=== PATIENT | female | born 1980 | race Caucasian/White ===

== ENCOUNTER 2019-01-12 09:52 | Emergency (ER) | payer OTHER, SELFPAY ==
[2019-01-12 09:58] VITALS: BP 114/78; PULSE 69; RESP 18; TEMP 36.3; O2SAT 100
[2019-01-12 12:13] VITALS: BP 125/75; PULSE 70; RESP 17; O2SAT 100
--- NOTE | 2019-01-12 12:22 | ED_ITS ---
HPI - Extremity Injury (Upper) <BERENICE Rosenbaum - Last Filed: 01/12/19 21:54> General Chief Complaint: Extremity Injury, Upper Stated Complaint: possible MS Relapse Time Seen by Provider: 01/12/19 09:55 Source: patient Mode of arrival: ambulatory Limitations: no limitations History of Present Illness HPI narrative: 38-year-old female with history of MS is a nonsmoker here for complaint of numbness to her distal right arm. She reports that she has had this over the past 3-4 days. She reports that the numbness and some discomfort to her right shoulder started after she had strenuous exercise after lifting weights above her head the day before and worsened when she repeated a strenuous exercise regimen the next day. She was seen for the same symptoms at [facility]. Where MRI of her right shoulder and her neck were obtained and were negative for any acute findings. Consultation was held with Urology did not feel that this was an acute MS exacerbation and is most likely muscle skeletal due to exacerbation from strenuous workout. She reports that her symptoms not have resolved at this timeframe she denies any direct trauma. She denies any other neurological deficits. With no visual changes. She is ambulatory into the emergency room. Numbness is limited to the right arm and hand. She denies any stressors or relievers of her symptoms. Related Data Home Medications Medication Instructions Recorded Confirmed Fish Oil 1 cap PO BEDTIME 01/12/19 01/12/19 Vitamin D3 1 cap PO BEDTIME PRN 01/12/19 01/12/19 melatonin 1 tab PO BEDTIME PRN 01/12/19 01/12/19 vitamin B complex 1 tab PO BEDTIME 01/12/19 01/12/19 Previous Rx's Medication Instructions Recorded cyclobenzaprine 10 mg PO TID PRN #15 tab 01/12/19 prednisone 40 mg PO DAILY #8 tab 01/12/19 Allergies Allergy/AdvReac Type Severity Reaction Status Date / Time Sulfa (Sulfonamide AdvReac Verified 01/12/19 09:58 Antibiotics) Review of Systems <BERENICE Rosenbaum - Last Filed: 01/12/19 21:54> Constitutional Denies chills, Denies fever(s), Denies lethargy and Denies weakness Eyes Denies change in vision, Denies eye discharge, Denies irritation and Denies loss of vision ENT Ears, Nose, Mouth, and Throat: Denies change in voice, Denies neck pain and Denies sore throat Cardiovascular Denies chest pain, Denies irregular heart rhythm, Denies lightheadedness, Denies palpitations, Denies dyspnea, Denies dyspnea on exertion and Denies orthopnea Respiratory Denies cough, Denies dyspnea, Denies dyspnea on exertion and Denies wheezing Gastrointestinal Comments: Right arm numbness Genitourinary Denies hematuria, Denies flank pain, Denies urinary incontinence and Denies urinary urgency Musculoskeletal Denies neck pain Integumentary/Breasts Denies pruritus, Denies erythema, Denies rash and Denies wounds Neurologic Denies confusion, Denies loss of vision and Denies weakness Psychiatric Denies anxiety, Denies confusion, Denies depression, Denies homicidal ideation and Denies suicidal ideation Endocrine Denies palpitations Hematologic/Lymphatic Denies easy bruising Allergic/Immunologic Denies wheezing PFSH <BERENICE Rosenbaum - Last Filed: 01/12/19 21:54> Social History Smoking Status: Never smoker Social History Smoking Status: Never smoker Exam <BERENICE Rosenbaum - Last Filed: 01/12/19 21:54> Initial Vital Signs Initial Vital Signs: Vital Signs Temperature 97.4 F L 01/12/19 09:58 Pulse Rate 69 01/12/19 09:58 Respiratory Rate 18 01/12/19 09:58 Blood Pressure 114/78 01/12/19 09:58 Pulse Oximetry 100 01/12/19 09:58 Const General: cooperative and well developed Nutritional Appearance: well nourished Orientation: alert, awake, oriented x3 and not confused [facility] Mouth: oral mucosae normal and moist mucous membranes Eyes Conjunctivae: conjunctivae normal Sclera: sclerae normal Pupils: PERRL EOM: EOM intact bilaterally Neck Neck: normal visual inspection, trachea midline, No lymphadenopathy, No midline deformity and No JVD Thyroid: nontender Lymphatic: No lymphedema Chest Chest: normal inspection of the chest Resp Effort & Inspection: normal respiratory effort, able to speak in complete sentences, no respiratory distress and no use of accessory muscles Auscultation: clear to auscultation bilaterally, no rales, no rhonchi and no wheezes Cardio Rate: regular rate Rhythm: regular rhythm Heart Sounds: no click, no gallops, no murmurs and no rubs Pulses: normal peripheral pulses Skin General: no rashes or lesions noted, No jaundice and No petechiae Extrem General: full ROM, no clubbing, cyanosis or edema, no pedal edema and no calf tenderness Other: Right arm with no signs of trauma. Distal sensation is intact. She has full range of motion of the right arm. There is tenderness with palpation to the right trapezius area with muscle tension. No tenderness to palpation to the right shoulder and right arm. Distal pulses are intact. <Carlos Sanchez DO - Last Filed: 01/13/19 09:44> Initial Vital Signs Initial Vital Signs: Vital Signs Temperature 97.4 F L 01/12/19 09:58 Pulse Rate 69 01/12/19 09:58 Respiratory Rate 18 01/12/19 09:58 Blood Pressure 114/78 01/12/19 09:58 Pulse Oximetry 100 01/12/19 09:58 Course <BERENICE Rosenbaum - Last Filed: 01/12/19 21:54> Vital Signs - 8 hr 01/12/19 14:00 Pulse Rate 53 L Respiratory Rate 18 Blood Pressure [Left Arm] 105/57 L <DO Don Martinez Last Filed: 01/13/19 09:44> Vital Signs - 8 hr 01/12/19 14:00 Pulse Rate 53 L Respiratory Rate 18 Blood Pressure [Left Arm] 105/57 L MDM - Extremity Injury (Upper) <BERENICE Rosenbaum - Last Filed: 01/12/19 21:54> MDM Narrative Medical decision making narrative: Reviewed results from a [facility] emergency [facility] visit 2 days ago. MRI was unremarkable to the shoulder and the neck. Signs and symptoms presents as more muscle skeletal in nature due to over use of a the shoulder/trapezius area causing her symptoms. Will give trial of short course of prednisone for anti-inflammatory effects along with cyclobenzaprine. If any worsening symptoms return to the emergency room. Will have her follow up with primary care provider in the next few days for re-evaluation. Recommend follow up with Neurology if continued symptoms do not resolve after treatment. Rest area. Gentle range of motion painful areas. For any worsening symptoms return to the emergency room. Discharge Plan Departure Patient Disposition: Home Clinical Impression: Numbness and tingling of right arm Discharge Date/Time: 01/12/19 14:26 Interventions: ED Discharge Assessment Last Done: 01/12/19 14:26 Instructions: DI for Numbness/tingling Activity Restrictions/Additional Instructions: Reviewed notes from prior visit to [facility] where MRI of the right shoulder and neck were obtained and were negative for any acute findings. Consultation was obtained with Neurology who did not feel that this was an acute MS exacerbation at this time. Presentation with tenderness to the right shoulder and trapezius area is is suggestive of muscle tension and strain causing irritation to nerves to the right arm. You are prescribed a short course of prednisone for anti-inflammatory effects and muscle relaxer to see if it helps the symptoms. Follow up with her primary care provider the next few days for re- evaluation. Gentle range of motion to a right shoulder right arm to help loosen muscles. Rest area. Recommend referral to Neurology if symptoms do not resolve. For any worsening symptoms return to the emergency room. Prescriptions: New cyclobenzaprine 10 mg tablet 10 mg PO TID PRN (Reason: muscle spasm) Qty: 15 RF: 0 prednisone 20 mg tablet 40 mg PO DAILY Qty: 8 RF: 0 No Action Fish Oil 1 cap PO BEDTIME RF: 0 Vitamin D3 1 cap PO BEDTIME PRN (Reason: Sleep) RF: 0 melatonin 1 tab PO BEDTIME PRN (Reason: Sleep) RF: 0 vitamin B complex 1 tab PO BEDTIME RF: 0 Referrals: Jin Whipple MD [Primary Care Provider] - <Carlos Sanchez DO - Last Filed: 01/13/19 09:44> [facility] Anuel Attestation: I was immediately available in the department for consultation. Documentation has been reviewed. I agree with assessment and plan.
[2019-01-12 14:00] VITALS: BP 105/57; PULSE 53; RESP 18
== END 2019-01-12 14:26 | disposition home or self-care (01) ==
PROVIDERS: Emergency Provider Nurse Practitioner Family; PCP Family Medicine
DX: R20.0 Anesthesia of skin (principal)
CPT/HCPCS: 99282

== ENCOUNTER 2019-07-29 09:28 | Day surgery (SDC) | payer OTHER, SELFPAY ==
[2019-07-29] VITALS (7 sets, daily range): BP systolic 89–107; BP diastolic 52–63; PULSE 60–72; RESP 10–16; TEMP 36.3–37.2; O2SAT 100; BMI 22.3
[2019-07-29] MEDS: SODIUM CHLORIDE 0.9% 1,000 ML 200 ML IV (10:01)
--- NOTE | 2019-07-29 10:11 | PM.HP.1 ---
History of Present Illness History of Present Illness Date Patient Seen: 07/29/19 Time Patient Seen: 10:11 Chief complaint: [id number] Narrative: 39-year-old woman with strong family history of colorectal cancer presents for screening colonoscopy Last colonoscopy in 2017 -had a pedunculated polyp removed in what sounds like the distal sigmoid colon versus proximal rectum, she had a flat adenomatous polyp removed near her ileocecal valve -per her prior endoscopist the recommended call back interval to evaluate this area was 2 years. Of note patient's grandfather had colon cancer at age 45, her mother has numerous polyps Currently without intestinal complaints Tolerated her prep well Patient History Family & Social History Social History: household members spouse Tobacco & Substance use: Smoking Status Never smoker alcohol intake frequency 0-2 drinks per day Substance Use Type does not use Meds Home Medications and Allergies Home Medications Medication Instructions Recorded Confirmed Type Fish Oil 1 cap PO BEDTIME 01/12/19 01/12/19 History Vitamin D3 1 cap PO BEDTIME PRN 01/12/19 01/12/19 History cyclobenzaprine 10 mg PO TID PRN #15 tab 01/12/19 Rx melatonin 1 tab PO BEDTIME PRN 01/12/19 01/12/19 History prednisone 40 mg PO DAILY #8 tab 01/12/19 Rx vitamin B complex 1 tab PO BEDTIME 01/12/19 01/12/19 History Allergies Allergy/AdvReac Type Severity Reaction Status Date / Time Sulfa (Sulfonamide AdvReac Verified 07/29/19 09:50 Antibiotics) Review of Systems Constitutional Constitutional: Denies fever(s) Eyes Eyes: Denies bulging eyes ENT Ears, Nose, Mouth, and Throat: No lip swelling Cardiovascular Cardiovascular: Denies generalize swelling Respiratory Respiratory: Denies stridor Gastrointestinal Gastrointestinal: Denies coffee ground emesis Musculoskeletal Musculoskeletal: Denies loss of height Integumentary/Breasts Skin/Breast: Denies wounds Neurologic Neurologic: Denies abnormal speech and Denies confusion Psychiatric Psychiatric: Denies confusion and Denies tactile hallucinations Endocrine Endocrine: Denies deepening of the voice Hematologic/Lymphatic Hematologic/Lymphatic: Denies lymphadenopathy Allergic/Immunologic Allergic/Immunologic: Denies lip swelling Exam Vital Signs (past 8 hours): - 07/29/19 09:51 Temperature 97.4 F L Pulse Rate 72 Respiratory Rate 16 Blood Pressure 105/57 L Pulse Oximetry 100 Oxygen Delivery Method Room Air Const General: cooperative and healthy appearing Orientation: alert [facility] Head: normal to inspection Nose: nares normal Mouth: oral mucosae normal and lip normal Eyes Eyelids: eyelids normal Conjunctivae: conjunctivae normal Sclera: sclerae normal Neck Neck: supple and other (No thyromegally) Chest Chest: other (LCTAB , regular respiratory effort) Cardio Rhythm: regular rhythm Heart Sounds: S1 normal, S2 normal, no gallops, no murmurs and no rubs GI Other: Abdomen soft nontender nondistended Skin General: no rashes or lesions noted Neuro General: alert and awake Psych Appearance: grossly normal Affect: normal affect Assessment & Plan Assessment & Plan narrative: 39 present for screening colonoscopy -family history of colon cancer Risks and benefits discussed including risk of , bleeding, perforation, hypoxia, missed lesions All questions answered Patient rated proceed
[2019-07-29] MEDS: fentaNYL 250 MCG/5 ML INJ IV (10:43)
[2019-07-29] MEDS: MIDAZOLAM 5 MG/5 ML VIAL IV (10:43)
--- NOTE | 2019-07-29 11:08 | PM.OP.ENDO ---
Operative Date/Time/Diagnoses Date of procedure: 07/29/19 Time of procedure: 11:08 Pre-op diagnosis: Colorectal cancer screening Post-op diagnosis: same Procedure & Clinicians Study performed: Screening colonoscopy-complete Same procedure as scheduled: Yes Indications: 39-year-old female with strong family history of colorectal cancer including grandfather who had colon cancer at age 45, mother with numerous polyps. She underwent her 1st colonoscopy 2 years ago and was found to have a high risk lesion that was felt to be fully removed near the ileocecal valve. For endoscopist at that time recommended follow-up in 2 years. Surgeon: Simba Roa Procedure Notes SCOAP/Timeout: Complete Procedure in detail: Patient was taken to the endoscopy room, a time-out was completed. Was sedated over the entire course of the procedure with 10 mg of midazolam and 250 micro g of fentanyl. A digital rectal exam was performed, no lesions identified. A 160 cm colonoscope was introduced into the anus and advanced through the folds of the rectum and colon. Of note her colon had numerous tight turns -which made negotiation forward somewhat difficult. Eventually we were able to reach the cecum. The cecum was identified via prominent ileocecal valve -the valve was intubated, and the villous of the terminal ileum seen in photographed. There is no abnormalities. A the cecal crows foot was seen. No appendiceal orifice was identified due to the patient's previous appendectomy. At this point the cecum, ileocecal valve, colonic mucosa in the vicinity of the ileocecal valve, as well as the proximal right colon -were scrupulously thoroughly inspected. The scope was retroflexed within the cecum to look at the inferior aspect the ileocecal valve as well. No lesions were identified anywhere in this region. The scope was then slowly withdrawn visualizing the colonic mucosa circumferentially -we meticulously inspected behind numerous colonic folds as well. There were some scattered mild sigmoid diverticula without evidence of active inflammation. Within the rectum the scope was retroflexed to visualize the distal rectum. No lesions were identified Prep was excellent Patient tolerated the procedure well Scope withdrawal time: 18 Sedation minutes: 52 Specimen(s): none sent Complications: none Impression: Mild sigmoid diverticulosis Very careful inspection of the cecum/ileocecal area/proximall right colon -without regrowth of high risk lesion Post-procedure Recommendations: Colonscopy in 5 years Plan for aftercare: PACU then home Follow up: as needed Disposition: PACU
--- NOTE | 2019-07-29 11:17 | SUR.PHASEI ---
1113 To PACU, very drowsy, states that she has 5 young children and will sleep well. Denies pain other than slight gas discomfort; Knows to pass the gas as needed. Returned to sleep
--- NOTE | 2019-07-29 11:34 | SUR.PHASEI ---
1125 talked with patient, explained exam and gave her pictures. HOB elevated, juice given. Oriented, stable, preparing to transfer to [facility].
== END 2019-07-29 12:19 | disposition home or self-care (01) ==
PROVIDERS: PCP Family Medicine; Visit Provider Surgery
PROC: 0DJD8ZZ Inspection of Lower Intestinal Tract, Via Natural or Artificial Opening Endoscopic (ICD-10-PCS; CPT 45378; principal; 2019-07-29 10:45)
DX: Z86.010 Personal history of colon polyps (principal); Z80.0 Family history of malignant neoplasm of digestive organs; K57.30 Diverticulosis of large intestine without perforation or abscess without bleeding
CPT/HCPCS: 45378; 99152; 99153; J2250; J3010